=== PATIENT | female | born 1975 | race African-American/Black ===

== ENCOUNTER 2022-11-14 15:35 | Inpatient (IN) | payer SELFPAY ==
[2022-11-14 16:53] LABS: #Monocytes 0.3 10x3/uL (0.0-1.1); #Neutrophils 3.7 10x3/uL (1.5-8.4); %Basophils 0.7 % (0.0-2.0); %Eosinophils 0.7 % (0.0-6.0); %Lymphocytes 29.9 % (18.0-47.0); %Monocytes 4.5 % (0.0-10.0); %Neutrophils 63.9 % (40.0-75.0); Hemoglobin 5.4 g/dL (12.0-15.5); Mean Corpuscular HGB CONC 28.7 g/dL (32.0-36.0); Mean Corpuscular Hemoglobin 18.6 pg (27.0-33.0); Mean Corpuscular Volume 64.8 fl (81.6-98.3); Mean Platelet Volume 10.9 fl (7.4-10.4); Platelet Count 270 10x3/uL (150-450); RBC Distribution Width 21.3 % (11.5-14.5); White Blood Cell (WBC) Count 5.8 10x3/uL (3.5-10.5)
[2022-11-14 16:57] LABS: ALT (SGPT) 10 U/L (8-55); AST (SGOT) 12 U/L (5-34); Albumin 4.2 g/dL (3.5-5.0); Alkaline Phosphatase 51 U/L (40-110); Anion Gap 13 mmol/L (10-20); BUN (Urea Nitrogen) 9 mg/dL (7.0-18.7); Bilirubin, Total 0.4 mg/dL (0.2-1.2); Calc. Creatinine Clearance 0 mL/min (70-130); Calcium 9.1 mg/dL (7.8-10.44); Carbon Dioxide 24 mmol/L (22-29); Chloride 106 mmol/L (98-107); Estimated GFR 97; Globulin 3.4 g/dL (2.4-3.5); Glucose 205 mg/dL (70-105); Lipase 41 U/L (8-78); Potassium 3.5 mmol/L (3.5-5.1); Protein, Total 7.6 g/dL (6.0-8.3); Sodium 139 mmol/L (136-145)
[2022-11-14 17:35] LABS: Anisocytosis SLIGHT = 6-15 cells (100X) (0-5/hpf); Hypochromia MARKED = >30 cells (100X) (0-5/hpf); Polychromasia MODERATE = 3-4 cells (100X) (0-2/hpf)
[2022-11-14 17:49] LABS: Microcytosis MODERATE=15-30 cells (100X) (0-5/hpf); Ovalocytes SLIGHT = 2-5 cells (100X) (0-1/hpf)
[2022-11-14 17:50] LABS: Elliptocytes SLIGHT = 2-5 cells (100X) (0-1/hpf); Reflex for Review?? YES
[2022-11-14 17:52] LABS: Large Platelets SLIGHT; Platelet Morphology Comment Appears Adequate
[2022-11-14 20:10] LABS: Lactic Acid 2.5 mmol/L (0.5-2.2)
[2022-11-14 22:28] VITALS: BMI 30.1
[2022-11-14] MEDS ORDERED: FLU VACC QS2022-23(6MOS UP)/PF 60 MCG/0.5 ML SYRINGE IM ONE (23:00)
[2022-11-15 08:31] LABS: #Eosinphils 0.1 10x3/uL (0.0-0.5); #Monocytes 0.3 10x3/uL (0.0-1.1); #Neutrophils 2.6 10x3/uL (1.5-8.4); %Basophils 0.7 % (0.0-2.0); %Eosinophils 1.5 % (0.0-6.0); %Lymphocytes 34.6 % (18.0-47.0); %Monocytes 6.8 % (0.0-10.0); %Neutrophils 56.2 % (40.0-75.0); Hemoglobin 7.3 g/dL (12.0-15.5); Mean Corpuscular HGB CONC 30.7 g/dL (32.0-36.0); Mean Corpuscular Hemoglobin 21.5 pg (27.0-33.0); Platelet Count 232 10x3/uL (150-450); RBC Distribution Width 22.4 % (11.5-14.5); White Blood Cell (WBC) Count 4.6 10x3/uL (3.5-10.5)
[2022-11-15 08:47] LABS: Anion Gap 9 mmol/L (10-20); BUN (Urea Nitrogen) 9 mg/dL (7.0-18.7); Calc. Creatinine Clearance 149 mL/min (70-130); Calcium 8.5 mg/dL (7.8-10.44); Carbon Dioxide 24 mmol/L (22-29); Chloride 109 mmol/L (98-107); Estimated GFR 109; Glucose 124 mg/dL (70-105); Potassium 3.8 mmol/L (3.5-5.1); Sodium 138 mmol/L (136-145)
[2022-11-15] MEDS ORDERED: Ondansetron ODT 4 MG TAB PO PRN (10:26)
[2022-11-15] MEDS ORDERED: Acetaminophen 325 MG TAB PO PRN (10:26)
[2022-11-15] MEDS ORDERED: Docusate 100 MG CAP PO PRN (10:31)
[2022-11-15] MEDS ORDERED: Electrolyte Replacement Protocol 1 EACH FS SCH (10:45)
[2022-11-15] MEDS ORDERED: Ferrous Sulfate 325 MG TAB PO SCH (17:00)
[2022-11-16 05:13] LABS: Phosphorus 3.2 mg/dL (2.3-4.7)
[2022-11-16 05:15] LABS: Anion Gap 10 mmol/L (10-20); BUN (Urea Nitrogen) 12 mg/dL (7.0-18.7); Calc. Creatinine Clearance 139 mL/min (70-130); Calcium 8.7 mg/dL (7.8-10.44); Carbon Dioxide 24 mmol/L (22-29); Chloride 106 mmol/L (98-107); Estimated GFR 105; Glucose 180 mg/dL (70-105); Magnesium 1.9 mg/dL (1.6-2.6); Potassium 3.8 mmol/L (3.5-5.1); Sodium 136 mmol/L (136-145)
[2022-11-16 05:32] LABS: #Eosinphils 0.1 10x3/uL (0.0-0.5); #Monocytes 0.5 10x3/uL (0.0-1.1); #Neutrophils 2.9 10x3/uL (1.5-8.4); %Basophils 0.5 % (0.0-2.0); %Eosinophils 1.2 % (0.0-6.0); %Lymphocytes 39.1 % (18.0-47.0); %Monocytes 7.9 % (0.0-10.0); %Neutrophils 51.1 % (40.0-75.0); Hemoglobin 7.7 g/dL (12.0-15.5); Mean Corpuscular HGB CONC 31.3 g/dL (32.0-36.0); Mean Corpuscular Hemoglobin 22.4 pg (27.0-33.0); Mean Corpuscular Volume 71.5 fl (81.6-98.3); Mean Platelet Volume 11.1 fl (7.4-10.4); Platelet Count 233 10x3/uL (150-450); RBC Distribution Width 22.1 % (11.5-14.5); Red Blood Cell (RBC) Count 3.44 10x6/uL (3.90-5.03); White Blood Cell (WBC) Count 5.7 10x3/uL (3.5-10.5)
[2022-11-16] MEDS ORDERED: Magnesium 2 GM/50 ML(in water) 2 GM in Premix Bag 1 BAG IVPB SCH (06:00)
[2022-11-16 06:45] LABS: Anisocytosis MODERATE=16-30 cells (100X) (0-5/hpf); Hypochromia MODERATE=16-30 cells (100X) (0-5/hpf); Macrocytosis SLIGHT = 6-15 cells (100X) (0-5/hpf); Microcytosis SLIGHT = 6-15 cells (100X) (0-5/hpf)
[2022-11-16] MEDS: medroxyPROGESTERone Acetate 5 MG TAB PO SCH (08:08)
[2022-11-16] MEDS ORDERED: medroxyPROGESTERone Acetate 5 MG TAB PO SCH (09:00)
[2022-11-16] MEDS: Iron Sucrose Complex 200 MG in Sodium Chloride 0.9% 250 ML 250 ML IVPB SCH (09:59)
[2022-11-17 07:19] LABS: Magnesium 1.9 mg/dL (1.6-2.6)
[2022-11-17 07:21] LABS: Hemoglobin 7.6 g/dL (12.0-15.5); Mean Corpuscular HGB CONC 31.3 g/dL (32.0-36.0); Mean Corpuscular Hemoglobin 22.2 pg (27.0-33.0); Mean Corpuscular Volume 71.1 fl (81.6-98.3); Mean Platelet Volume 10.9 fl (7.4-10.4); Platelet Count 232 10x3/uL (150-450); RBC Distribution Width 22.2 % (11.5-14.5); Red Blood Cell (RBC) Count 3.42 10x6/uL (3.90-5.03)
[2022-11-17] MEDS ORDERED: Magnesium 2 GM/50 ML(in water) 2 GM in Premix Bag 1 BAG IVPB SCH ×2 (09:00→14:30)
[2022-11-17] MEDS: medroxyPROGESTERone Acetate 5 MG TAB PO SCH (09:21)
[2022-11-17] MEDS: Iron Sucrose Complex 200 MG in Sodium Chloride 0.9% 250 ML 250 ML IVPB SCH (09:22)
[2022-11-17] MEDS ORDERED: Magnesium 2 GM/50 ML BAG (IN WATER) ONE (15:16)
[2022-11-17] MEDS ORDERED: diphenhydrAMINE 25 MG CAP PO PRN (23:01)
[2022-11-18 06:03] LABS: Hemoglobin 7.8 g/dL (12.0-15.5); Mean Corpuscular HGB CONC 30.8 g/dL (32.0-36.0); Mean Corpuscular Hemoglobin 22.4 pg (27.0-33.0); Mean Corpuscular Volume 72.7 fl (81.6-98.3); Platelet Count 250 10x3/uL (150-450); Red Blood Cell (RBC) Count 3.48 10x6/uL (3.90-5.03); White Blood Cell (WBC) Count 7.7 10x3/uL (3.5-10.5)
[2022-11-18] MEDS ORDERED: Magnesium 2 GM/50 ML(in water) 2 GM in Premix Bag 1 BAG IVPB SCH (06:15)
[2022-11-18] MEDS: Iron Sucrose Complex 200 MG in Sodium Chloride 0.9% 250 ML 250 ML IVPB SCH (10:46)
[2022-11-18] MEDS: medroxyPROGESTERone Acetate 5 MG TAB PO SCH (17:26)
[2022-11-18 17:31] VITALS: BP 137/67; TEMP 98.3
== END 2022-11-18 17:30 | disposition home or self-care (01) | DRG 812 ==
LOC: CSHERS 15:35 → CSHTELE 19:00 → OBSVTOIN 11-17 12:58
PROVIDERS: ADMIT Family Medicine; ATTEND Internal Medicine
PROC: 30233N1 Transfusion of Nonautologous Red Blood Cells into Peripheral Vein, Percutaneous Approach (ICD-10-PCS; principal; 2022-11-15)
DX: D50.0 Iron deficiency anemia secondary to blood loss (chronic) (principal); Z20.822 Contact with and (suspected) exposure to COVID-19; D25.9 Leiomyoma of uterus, unspecified; F41.9 Anxiety disorder, unspecified; F32.A Depression, unspecified; N92.0 Excessive and frequent menstruation with regular cycle; E66.9 Obesity, unspecified; Z68.30 Body mass index [BMI] 30.0-30.9, adult; Z79.899 Other long term (current) drug therapy; Z98.51 Tubal ligation status; Z82.49 Family history of ischemic heart disease and other diseases of the circulatory system; Z80.0 Family history of malignant neoplasm of digestive organs
CPT/HCPCS: 36415; 36430; 80048; 80053; 83605; 83690; 83735; 84100; 85025; 85027; 85060; 86850; 86900; 86901; 93005; 94760; 96374; 96375; 96376; G0378; J1756; J3475; J7050; P9016

== ENCOUNTER 2022-11-25 10:12 | Emergency (ER) | payer SELFPAY ==
[2022-11-25 11:27] LABS: #Eosinphils 0.1 10x3/uL (0.0-0.5); #Monocytes 0.3 10x3/uL (0.0-1.1); #Neutrophils 3.4 10x3/uL (1.5-8.4); %Basophils 0.6 % (0.0-2.0); %Eosinophils 1.5 % (0.0-6.0); %Lymphocytes 28.7 % (18.0-47.0); %Monocytes 5.4 % (0.0-10.0); %Neutrophils 63.4 % (40.0-75.0); Hemoglobin 7.3 g/dL (12.0-15.5); Mean Corpuscular HGB CONC 29.7 g/dL (32.0-36.0); Mean Corpuscular Hemoglobin 23.7 pg (27.0-33.0); Mean Corpuscular Volume 79.9 fl (81.6-98.3); Mean Platelet Volume 10.3 fl (7.4-10.4); Platelet Count 180 10x3/uL (150-450); Red Blood Cell (RBC) Count 3.08 10x6/uL (3.90-5.03); White Blood Cell (WBC) Count 5.3 10x3/uL (3.5-10.5)
== END 2022-11-25 12:28 | disposition home or self-care (01) ==
LOC: CSHERS 10:12
DX: S40.021A Contusion of right upper arm, initial encounter (principal); N93.8 Other specified abnormal uterine and vaginal bleeding; I82.611 Acute embolism and thrombosis of superficial veins of right upper extremity; X58.XXXA Exposure to other specified factors, initial encounter
CPT/HCPCS: 36415; 85025; 99283